=== PATIENT | female | born 1975 | race Caucasian/White ===

== ENCOUNTER 2023-04-05 09:46 | Emergency (ER) | payer BC, SELFPAY ==
[2023-04-05] VITALS (9 sets, daily range): BP systolic 106–134; BP diastolic 68–81; PULSE 56–70; RESP 10–18; TEMP 36.8; O2SAT 95–99; BMI 30.1
--- NOTE | 2023-04-05 10:00 | ED.GENADUL1 ---
HPI - General Adult General Chief complaint: Syncope Stated complaint: syncope Time Seen by Provider: 04/05/23 09:59 Source: patient Mode of arrival: walk-in Limitations: no limitations History of Present Illness HPI narrative: patient is a 47-year-old female who is presenting to the Emergency Room with chief complaint of a syncopal episode today. Patient has a history of 1st degree AV block. Patient is working with Dr. Marcus, cardiology. Patient has never had a syncopal episode secondary to cardiac reasons that she is aware of. Patient was feeling lightheaded and dizzy, some mild nausea last evening. Patient was at work today, she is respiratory therapist at [employer]. patient states for the past week she has not been feeling well, intermittently headache, palpitations and intermittent chest pain. Patient has had ongoing symptoms on and off the last several months. Patient was admitted to [facility] and had a cardiac evaluation. Patient was set up with Dr. Marcus. Patient was initially started on metoprolol 25 mg twice a day, and she was having some side effects metoprolol slightly decrease her to half a tablet twice a day. to have a tablet was was not working, then patient started having symptoms again so she increased her metoprolol back to 25 mg twice a day for the past week which is not helping this time. 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 Currently patient has minimal palpitations, Related Data Home Medications Medication Instructions Recorded Confirmed escitalopram oxalate 20 mg tablet 20 mg PO DAILY 04/05/23 04/05/23 famotidine 20 mg tablet (Acid 20 mg PO DAILY 04/05/23 04/05/23 Controller) metoprolol tartrate 25 mg tablet 25 mg PO Q12H 04/05/23 04/05/23 Previous Rx's Medication Instructions Recorded labetalol 100 mg tablet 50 mg PO BID #20 tabs 04/05/23 Allergies Allergy/AdvReac Type Severity Reaction Status Date / Time No Known Drug Allergies Allergy Verified 04/05/23 09:51 Exam Constitutional Vital Signs - 24 hr 04/05/23 09:51 04/05/23 09:52 04/05/23 09:54 Temperature 98.2 F Pulse Rate 70 69 Pulse Rate [Monitor] 67 Respiratory Rate 18 10 L 18 Blood Pressure 120/78 H Blood Pressure [Right Arm] 120/78 H Pulse Oximetry 96 99 Oxygen Delivery Method Room Air 04/05/23 09:54 04/05/23 10:15 04/05/23 10:30 Temperature Pulse Rate 58 L 67 59 L Pulse Rate [Monitor] Respiratory Rate 18 16 18 Blood Pressure 106/71 120/68 H Blood Pressure [Right Arm] Pulse Oximetry 96 95 Oxygen Delivery Method 04/05/23 11:00 04/05/23 11:30 04/05/23 12:00 Temperature Pulse Rate 58 L 63 56 L Pulse Rate [Monitor] Respiratory Rate 16 11 L 15 Blood Pressure 133/81 H 134/80 H 117/70 Blood Pressure [Right Arm] Pulse Oximetry 99 99 Oxygen Delivery Method Course Vital Signs Vital signs: Vital Signs Temperature 98.2 F 04/05/23 09:51 Pulse Rate 67 04/05/23 09:51 Respiratory Rate 18 04/05/23 09:51 Blood Pressure 120/78 H 04/05/23 09:51 Pulse Oximetry 96 04/05/23 09:51 Oxygen Delivery Method Room Air 04/05/23 09:51 Temperature 98.2 F 04/05/23 09:51 Pulse Rate 56 L 04/05/23 12:00 Respiratory Rate 15 04/05/23 12:00 Blood Pressure 117/70 04/05/23 12:00 Pulse Oximetry 99 04/05/23 12:00 Oxygen Delivery Method Room Air 04/05/23 09:51 Medical Decision Making MDM Narrative Medical decision making narrative: 2 different phone calls were had with Taylor TSE at the [facility] office in [place]. I initially spoke to her when patient had arrived to make her aware of the visit, aware of the workup patient had any TMC, and to see what recommendations can be made at discharge. Patient CTA of the chest shows no acute pathology. patient's troponin, electrolytes, and lab testing showed no acute abnormalities. Patient's EKG showed no acute findings. Taylor TSE at the [facility] office in [place] made recommendations at discharge that patient should stop taking metoprolol, started taking labetalol 50 mg twice a day. Patient will still keep her Saturday appointment next week in the [place] [facility]ology office, but the nurse practitioner trying get her to a neurogenic cardio clinic in he [facility] which may be more beneficial. The cardiology office at [place] will call patient to let her know about what they in time her appointment can be and also if her appointment on Saturday will be cancer or not. Patient feels slightly better after IV fluids. Patient understands recommendation of having somebody from home pick her up from work today. Patient was given a work note for tomorrow if needed. Patient will follow up with specialist next week, patient feels comfortable going home. No questions at discharge. Medical Records Medical records narrative: CTA of the chest show no acute pathology, please see official report Lab Data Lab results reviewed: Yes I reviewed the patient's lab results Labs: Lab Results 04/05/23 04/05/23 04/05/23 Range/Units 10:00 10:14 10:40 WBC 9.4 (4.0-11.0) 10^3/uL RBC 4.15 L (4.20-5.40) 10^6/uL Hgb 12.1 (12.0-16.0) g/dL Hct 36.8 (36.0-48.0) % MCV 88.7 (81.0-99.0) fL MCH 29.2 (26.7-34.0) pg MCHC 32.9 (29.9-35.2) g/dL RDW 13.2 (11.0-15.0) % Plt Count 379 (150-450) 10^3/uL MPV 9.6 (9.5-13.5) fL Neut % (Auto) 60.3 (43.0-75.0) % Lymph % (Auto) 30.2 (20.5-60.0) % [place] % (Auto) 6.7 (1.7-12.0) % Eos % (Auto) 2.1 (0.9-7.0) % Baso % (Auto) 0.5 (0.2-2.0) % Neut # (Auto) 5.6 (1.4-6.5) 10^3/uL Lymph # (Auto) 2.8 (1.2-3.8) 10^3/uL [place] # (Auto) 0.6 (0.3-0.8) 10^3/uL Eos # (Auto) 0.2 (0.0-0.7) 10^3/uL Baso # (Auto) 0.1 (0.0-0.1) 10^3/uL Abs Immat Gran (auto) 0.02 (0.00-0.03) 10^3/uL Imm/Tot Granulo (auto) 0.2 (0.0-0.5) % Sodium 139 (136-145) mmol/L Potassium 3.9 (3.5-5.1) mmol/L Chloride 103 (98-107) mmol/L Carbon Dioxide 26.8 (21.0-32.0) mmol/L Anion Gap 13.1 BUN 19.0 H (7.0-18.0) mg/dL Creatinine 1.02 (0.55-1.02) mg/dL Est GFR ( Amer) >60 (>=60) Est GFR (Non-Af Amer) 58 L (>=60) BUN/Creatinine Ratio 18.6 Glucose 92 (74-106) mg/dL Calcium 8.9 (8.5-10.1) mg/dL Magnesium 2.0 (1.8-2.4) mg/dL Total Bilirubin 0.3 (0.2-1.0) mg/dL AST 17 (15-37) U/L ALT 21 (14-59) U/L Alkaline Phosphatase 61 (46-116) U/L Troponin I High Sens <4.0 L (4.0-51.3) pg/mL NT-Pro-B Natriuret Pep 46.0 (<=450.0) pg/mL Total Protein 7.3 (6.4-8.2) g/dL Albumin 3.6 (3.4-5.0) g/dL Globulin 3.7 g/dL Albumin/Globulin Ratio 1.0 Lipase 182.0 (73.0-393.0) U/L Urine Color Lt. yellow (YELLOW) Urine Clarity Clear (CLEAR) Urine pH 7.5 (5.0-9.0) Ur Specific [place] 1.010 (1.005-1.025) Urine Protein Negative (NEG/TRACE) mg/dL Urine Glucose (UA) Negative (NEGATIVE) mg/dL Urine Ketones Negative (NEGATIVE) mg/dL Urine Occult Blood Negative (NEGATIVE) Urine Nitrite Negative (NEGATIVE) Urine Bilirubin Negative (NEGATIVE) Urine Urobilinogen 0.2 (0.2-1.0) EU/dL Ur Leukocyte Esterase Moderate A (NEGATIVE) Urine RBC (0-2) #/HPF Urine WBC (NONE SEEN) #/HPF Ur Squamous Epith Cells (NONE/RARE) #/LPF Urine Crystals (None Seen) #/HPF Urine Bacteria (NONE SEEN) #/HPF Urine Casts (NONE SEEN) #/LPF Urine Mucus (NONE SEEN) Ur Culture Indicated? Urine HCG, Qual Negative (NEGATIVE) POC Glucose 96 (74-106) mg/dL 04/05/23 Range/Units 10:49 WBC (4.0-11.0) 10^3/uL RBC (4.20-5.40) 10^6/uL Hgb (12.0-16.0) g/dL Hct (36.0-48.0) % MCV (81.0-99.0) fL MCH (26.7-34.0) pg MCHC (29.9-35.2) g/dL RDW (11.0-15.0) % Plt Count (150-450) 10^3/uL MPV (9.5-13.5) fL Neut % (Auto) (43.0-75.0) % Lymph % (Auto) (20.5-60.0) % [place] % (Auto) (1.7-12.0) % Eos % (Auto) (0.9-7.0) % Baso % (Auto) (0.2-2.0) % Neut # (Auto) (1.4-6.5) 10^3/uL Lymph # (Auto) (1.2-3.8) 10^3/uL [place] # (Auto) (0.3-0.8) 10^3/uL Eos # (Auto) (0.0-0.7) 10^3/uL Baso # (Auto) (0.0-0.1) 10^3/uL Abs Immat Gran (auto) (0.00-0.03) 10^3/uL Imm/Tot Granulo (auto) (0.0-0.5) % Sodium (136-145) mmol/L Potassium (3.5-5.1) mmol/L Chloride (98-107) mmol/L Carbon Dioxide (21.0-32.0) mmol/L Anion Gap BUN (7.0-18.0) mg/dL Creatinine (0.55-1.02) mg/dL Est GFR ( Amer) (>=60) Est GFR (Non-Af Amer) (>=60) BUN/Creatinine Ratio Glucose (74-106) mg/dL Calcium (8.5-10.1) mg/dL Magnesium (1.8-2.4) mg/dL Total Bilirubin (0.2-1.0) mg/dL AST (15-37) U/L ALT (14-59) U/L Alkaline Phosphatase (46-116) U/L Troponin I High Sens (4.0-51.3) pg/mL NT-Pro-B Natriuret Pep (<=450.0) pg/mL Total Protein (6.4-8.2) g/dL Albumin (3.4-5.0) g/dL Globulin g/dL Albumin/Globulin Ratio Lipase (73.0-393.0) U/L Urine Color (YELLOW) Urine Clarity (CLEAR) Urine pH (5.0-9.0) Ur Specific [place] (1.005-1.025) Urine Protein (NEG/TRACE) mg/dL Urine Glucose (UA) (NEGATIVE) mg/dL Urine Ketones (NEGATIVE) mg/dL Urine Occult Blood (NEGATIVE) Urine Nitrite (NEGATIVE) Urine Bilirubin (NEGATIVE) Urine Urobilinogen (0.2-1.0) EU/dL Ur Leukocyte Esterase (NEGATIVE) Urine RBC None seen (0-2) #/HPF Urine WBC 10-20 A (NONE SEEN) #/HPF Ur Squamous Epith Cells Moderate A (NONE/RARE) #/LPF Urine Crystals None seen (None Seen) #/HPF Urine Bacteria None seen (NONE SEEN) #/HPF Urine Casts None seen (NONE SEEN) #/LPF Urine Mucus None seen (NONE SEEN) Ur Culture Indicated? Yes Urine HCG, Qual (NEGATIVE) POC Glucose (74-106) mg/dL ECG Data Attestation: I personally reviewed and interpreted this ECG as follows: Interpretation: EKG interpretation. Normal sinus rhythm at 60 beats a minute. Normal axis deviation. No acute ST elevation, no acute ectopy. QTC of 403. DC interval of 284, first-degree AV block, chronic Discharge Plan Discharge Chief Complaint: Syncope Clinical Impression: AV block, 1st degree, Syncope Patient Disposition: Home, Self-Care Time of Disposition Decision: 13:23 Condition: Fair Prescriptions / Home Meds: New labetalol 100 mg tablet 50 mg PO BID Qty: 20 0RF No Action metoprolol tartrate 25 mg tablet 25 mg PO Q12H escitalopram oxalate 20 mg tablet 20 mg PO DAILY famotidine [Acid Controller] 20 mg tablet 20 mg PO DAILY Instructions: Syncope (ED), Heart Block (ED), Sick Sinus Syndrome (ED) Additional Instructions: education on sick sinus syndrome was given 2 for educational purposes only. stop taking metoprolol. You have a new prescription for labetalol 50 mg twice a day. Urine appointment is still scheduled for Saturday, the nurse practitioner from the cardiac clinic at [facility] is trying to save up with an appointment at the neurogenic cardio clinic at [facility]. The cardiology office at [place] will call you with further details on a new appointment in [place] and if your appointment will be canceled on Saturday. Continue to hydrate. Follow up with PCP. It is recommended he have a family member drive you home today, because cautious with driving. Stand Alone Forms: Portal Instructions Referrals: Physician,Non-Staff, MD [Primary Care Provider] - 1 week
[2023-04-05 10:17] LABS: Glucometer 96 mg/dL (74-106)
--- NOTE | 2023-04-05 10:18 | ECG_ITS ---
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
--- NOTE | 2023-04-05 10:19 | CT_ITS ---
[address] [address] Patient Name: SAM ESPINOZA MRN: [id number] date: 1975 Sex: F Assigned Patient Location: ER Current Patient Location: ER Accession/Order Number: [id number] Exam Date: 04/05/2023 10:38 Report Date: 04/05/2023 11:05 At the request of: EMMANUEL GARDNER Procedure: CT angio chest EXAMINATION: CT angio chest HISTORY: rule out PE , palpitations, syncopal episode, weakness COMPARISON: CTA chest 03/25/2020 TECHNIQUE: Multi-planar CT images were created with IV contrast. Axial, Coronal, and Sagittal images. Dose reduction techniques were achieved by using automated exposure control and/or adjustment of mA and/or kV according to patient size and/or use of iterative reconstruction technique. 3-D reconstruction was performed on a separate workstation. FINDINGS: VASCULATURE: No pulmonary embolism or abnormal opacity. LUNGS: No visible pulmonary disease. PLEURA: No mass, effusion, or pneumothorax. ADRIANA: No mass or adenopathy. MEDIASTINUM: No mass or adenopathy. CARDIAC: No enlargement, pericardial effusion, or pericardial thickening. AORTA: No aneurysm or dissection. CHEST WALL: No mass or axillary adenopathy. BONES: No bone lesion or fracture. LIMITED ABDOMEN: No suspicious findings. Limited images of the upper abdomen. OTHER: Negative. IMPRESSION: 1. No pulmonary embolism. 2. No pulmonary infiltrates or acute/suspicious findings to account for patient's symptoms. Electronically authenticated by: SUSY KING Date: 04/05/2023 11:05
[2023-04-05] MEDS: 0.9 % SODIUM CHLORIDE 1,000 ML 1000 ML IV (10:29)
[2023-04-05 10:36] LABS: Basophils Absolute Auto 0.1 10^3/uL (0.0-0.1); Basophils Percent Auto 0.5 % (0.2-2.0); Eosinophils Absolute Auto 0.2 10^3/uL (0.0-0.7); Eosinophils Percent Auto 2.1 % (0.9-7.0); Hematocrit 36.8 % (36.0-48.0); Hemoglobin 12.1 g/dL (12.0-16.0); Immature Granulocytes Abs Auto 0.02 10^3/uL (0.00-0.03); Immature Granulocytes Pct Auto 0.2 % (0.0-0.5); Lymphocytes Absolute Auto 2.8 10^3/uL (1.2-3.8); Lymphocytes Percent Auto 30.2 % (20.5-60.0); Mean Corpuscular HGB Conc 32.9 g/dL (29.9-35.2); Mean Corpuscular Hemoglobin 29.2 pg (26.7-34.0); Mean Corpuscular Volume 88.7 fL (81.0-99.0); Mean Platelet Volume 9.6 fL (9.5-13.5); Monocytes Absolute Auto 0.6 10^3/uL (0.3-0.8); Monocytes Percent Auto 6.7 % (1.7-12.0); Neutrophils Absolute Auto 5.6 10^3/uL (1.4-6.5); Neutrophils Percent Auto 60.3 % (43.0-75.0); Platelet Count 379 10^3/uL (150-450); Red Blood Count 4.15 10^6/uL (4.20-5.40); Red Cell Distribution Width 13.2 % (11.0-15.0); White Blood Count 9.4 10^3/uL (4.0-11.0)
[2023-04-05] MEDS: ASPIRIN 81 MG TAB.CHEW 162 MG PO (10:36)
[2023-04-05 10:48] LABS: Bilirubin Urine NEGATIVE (NEGATIVE); Blood Urine NEGATIVE (NEGATIVE); Clarity Urine CLEAR (CLEAR); Color Urine LT. YELLOW (YELLOW); Glucose Urine UA NEGATIVE (NEGATIVE); Ketones Urine NEGATIVE (NEGATIVE); Leukocyte Esterase Urine MODERATE (NEGATIVE); Nitrite Urine NEGATIVE (NEGATIVE); Protein Urine NEGATIVE (NEG/TRACE); Urobilinogen Urine 0.2 EU/dL (0.2-1.0); pH Urine 7.5 (5.0-9.0)
[2023-04-05 10:49] LABS: Urine Microscopic Indicated YES
[2023-04-05 10:51] LABS: HCG Qualitative Urine* NEGATIVE (NEGATIVE)
[2023-04-05 10:52] LABS: Alanine Aminotransferase 21 U/L (14-59); Albumin Level 3.6 g/dL (3.4-5.0); Alkaline Phosphatase 61 U/L (46-116); Anion Gap 13.1; Aspartate Amino Transferase 17 U/L (15-37); BUN Creatinine Ratio 18.6; Bilirubin Total 0.3 mg/dL (0.2-1.0); Calcium 8.9 mg/dL (8.5-10.1); Carbon Dioxide 26.8 mmol/L (21.0-32.0); Chloride 103 mmol/L (98-107); Estimated GFR (African America >60 (>=60); Estimated GFR (Non-African Ame 58 (>=60); Globulin 3.7 g/dL; Glucose 92 mg/dL (74-106); Potassium 3.9 mmol/L (3.5-5.1); Sodium 139 mmol/L (136-145); Total Protein 7.3 g/dL (6.4-8.2)
[2023-04-05 10:58] LABS: Troponin I High Sensitivity <4.0 pg/mL (4.0-51.3)
[2023-04-05 11:00] LABS: RBC Urine NONE SEEN #/HPF (0-2)
[2023-04-05 11:01] LABS: Bacteria Urine NONE SEEN #/HPF (NONE SEEN); Cast Seen? NONE SEEN #/LPF (NONE SEEN); Crystals Seen? None Seen #/HPF (None Seen); Mucus Urine NONE SEEN (NONE SEEN); Squamous Epithelial Cell Urine MODERATE #/LPF (NONE/RARE); Urine Culture Indicated YES
--- NOTE | 2023-04-05 12:56 | CA_ITS ---
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: : 1975 Requested By: [id number] Order Number: [id number] Reading MD: FORD ELLIOTT Interpretive Statements Predominant rhythm is sinus with with first degree AV block and average rate of 71 bpm TAchycardia - max rate of 135 bpm - longest episode of 6min 19sec w/ rate of 117-128bpm Bradycardia - min rate of 24 bpm, associated with block QRS due to AV block - longest episode of 4hrs 51min 30sec w/ rate of 48bpm Ventricular ectopy - 8 total (< 1%) - 7 PVC - 1 couplet Blocks - 5 episodes of second degree AV block, type I Patient triggered events: 40 - associated with rate of 108, 110, 117, 112, 114 and the remainder NSR - associated with chest pain, palpitations, SOB Impression: Predominant rhythm is sinus with average rateof 71 bpm - first degree AV block Fastest rate of 135 bpm and slowest 24 bpm (associated w/ dropped QRS) 7 PVC, 1 couplet 5 episodes of second degree AV block type I Electronically Signed On 05-26-2023 18:47:36 EDT by FORD ELLIOTT
--- NOTE | 2023-04-05 13:06 | PC.NURSE ---
RT at bedside placing haltor monitor at this time
== END 2023-04-05 13:39 | disposition home or self-care (01) ==
PROVIDERS: Emergency Provider Emergency Medicine
DX: R55 Syncope and collapse (principal); I44.0 Atrioventricular block, first degree; Z79.899 Other long term (current) drug therapy
CPT/HCPCS: 36415; 71275; 80053; 81001; 81003; 81015; 82948; 83690; 83735; 83880; 84484; 84703; 85025; 87086; 93005; 93246; 99285; Q9967

== ENCOUNTER 2023-06-03 22:15 | Outpatient (REF) | payer BC, SELFPAY ==
[2023-06-07 15:09] LABS: Age Gdln ACOG Testing Note (.); HPV Aptima Negative (Negative); IGP, Aptima HPV, rfx 16/18,45 Note (.)
== END 2023-06-03 22:16 | disposition home or self-care (01) ==
LOC: LAB 22:15
PROVIDERS: Visit Provider Physician Assistant
DX: Z01.419 Encounter for gynecological examination (general) (routine) without abnormal findings (principal)
CPT/HCPCS: 87624; G0145

== ENCOUNTER 2023-06-10 06:50 | Outpatient (OUT) | payer BC, SELFPAY ==
[2023-06-10 07:43] LABS: Basophils Percent Auto 0.4 % (0.2-2.0); Eosinophils Absolute Auto 0.3 10^3/uL (0.0-0.7); Hematocrit 38.6 % (36.0-48.0); Hemoglobin 12.6 g/dL (12.0-16.0); Immature Granulocytes Abs Auto 0.02 10^3/uL (0.00-0.03); Immature Granulocytes Pct Auto 0.2 % (0.0-0.5); Lymphocytes Absolute Auto 2.8 10^3/uL (1.2-3.8); Lymphocytes Percent Auto 29.2 % (20.5-60.0); Mean Corpuscular HGB Conc 32.6 g/dL (29.9-35.2); Mean Corpuscular Hemoglobin 28.8 pg (26.7-34.0); Mean Corpuscular Volume 88.3 fL (81.0-99.0); Mean Platelet Volume 9.4 fL (9.5-13.5); Monocytes Absolute Auto 0.8 10^3/uL (0.3-0.8); Neutrophils Absolute Auto 5.7 10^3/uL (1.4-6.5); Neutrophils Percent Auto 59.2 % (43.0-75.0); Platelet Count 380 10^3/uL (150-450); Red Blood Count 4.37 10^6/uL (4.20-5.40); White Blood Count 9.6 10^3/uL (4.0-11.0)
[2023-06-10 07:58] LABS: Estimated Average Glucose 108 mg/dL; Glycohemoglobin A1C 5.4 % (4.5-6.2)
[2023-06-10 09:08] LABS: Alanine Aminotransferase 21 U/L (14-59); Albumin Globulin Ratio 0.9; Albumin Level 3.8 g/dL (3.4-5.0); Alkaline Phosphatase 52 U/L (46-116); Anion Gap 11.5; Aspartate Amino Transferase 17 U/L (15-37); BUN Creatinine Ratio 16.3; Bilirubin Total 0.4 mg/dL (0.2-1.0); Carbon Dioxide 27.3 mmol/L (21.0-32.0); Chloride 104 mmol/L (98-107); Estimated GFR (African America >60 (>=60); Estimated GFR (Non-African Ame >60 (>=60); Glucose 89 mg/dL (74-106); Potassium 3.8 mmol/L (3.5-5.1); Sodium 139 mmol/L (136-145); Thyroid Stimulating Hormone 2.636 uIU/mL (0.358-3.740); Total Protein 7.8 g/dL (6.4-8.2)
== END 2023-06-10 06:51 | disposition home or self-care (01) ==
LOC: LAB 06:51
PROVIDERS: Visit Provider Physician Assistant
DX: Z01.419 Encounter for gynecological examination (general) (routine) without abnormal findings (principal)
CPT/HCPCS: 36415; 80053; 83036; 84443; 85025

== ENCOUNTER 2023-06-11 11:32 | Outpatient (OUT) | payer BC, SELFPAY ==
--- NOTE | 2023-06-11 11:36 | MM_ITS ---
Patient: SAM ESPINOZA Exam Date: 06/11/2023 : 1975 Gender:F Ordering : FLACO Acevedo . Admission #: [id number] Family : Non-Staff Physician Order #: [id number] CLICK HERE TO VIEW EXAM RADIOLOGY REPORT PROCEDURE: MM TOMOSYNTHESIS SCREENING BI COMPARISON: MG MAMM [facility] DIAG W CAD, 12/07/2020. MG MAMM SCREEN 3D [facility] CAD, 06/07/2022. INDICATIONS: Screening mammogram Z12.31 Calculator Name NCI Breast Cancer Risk Assessment Tool 5 Year Breast Cancer Risk 1.60% Lifetime Breast Cancer Risk 16.10% Personal Breast Cancer No Personal Ovarian Cancer No Treatments None Family Cancers Mother with breast cancer at age 64; Grandmother-maternal with breast cancer at age ~70; Aunt-maternal with breast cancer at age ~60; Aunt-maternal with breast cancer at age ~60; Grandfather-maternal with prostate cancer at age ~65; Mother with leukemia cancer at age 64. LOCATION: [facility] BREAST COMPOSITION: Extremely dense, which lowers the sensitivity of mammography. FINDINGS: DIAGNOSTIC CATEGORY 2--BENIGN FINDING. NO CHANGE FROM COMPARISON. Scattered benign-appearing calcifications are present. Scattered benign-appearing lymph nodes are present. RIGHT BREAST: No significant suspicious finding. LEFT BREAST: No significant suspicious finding. Loop recorder left axilla RECOMMENDATIONS: ROUTINE MAMMOGRAM AND CLINICAL EVALUATION IN 12 MONTHS. PLEASE NOTE: A NORMAL MAMMOGRAM DOES NOT EXCLUDE THE POSSIBILITY OF BREAST CANCER. A CLINICALLY SUSPICIOUS PALPABLE LUMP SHOULD BE BIOPSIED. Dictated by: Jb Lane MD on 06/12/2023 at 06:47 Approved by: Jb [address] MD on 06/12/2023 at 06:50
== END 2023-06-11 11:33 | disposition home or self-care (01) ==
LOC: MAMMO 11:32
PROVIDERS: Visit Provider Physician Assistant
DX: Z12.31 Encounter for screening mammogram for malignant neoplasm of breast (principal); Z80.3 Family history of malignant neoplasm of breast; Z80.42 Family history of malignant neoplasm of prostate; Z80.6 Family history of leukemia
CPT/HCPCS: 77063; 77067

== ENCOUNTER 2023-07-03 15:14 | Emergency (ER) | payer BC, SELFPAY ==
[2023-07-03] VITALS (30 sets, daily range): BP systolic 102–127; BP diastolic 62–78; PULSE 68–118; RESP 14–27; O2SAT 92–100; BMI 30.1
--- NOTE | 2023-07-03 15:37 | ED_ITS ---
HPI - Chest Pain General Chief Complaint: Chest Pain Stated Complaint: heart rate Time Seen by Provider: 07/03/23 15:37 Source: patient Mode of arrival: Wheelchair Limitations: no limitations History of Present Illness HPI narrative: Patient presents to emergency department complaining of palpitations. Patient states she was driving from. As per to [place] and on her way to work developed palpitations. She looked at her to watch and it showed a heart rate in the 140s. Patient arrived to the hospital and it was still 140. She was feeling dizzy and lightheaded so she came into the emergency department for evaluation. Patient has not been sick with anything such as fever, chills, cough, shortness of breath. She states since December she has been having weakness, palpitations, and has just not felt right. Since then she had a syncopal episode and was diagnosed with the 1st degree AV block. The patient has seen Dr. Guzman in and she had a loop recorder placed. Next appointment with Dr. Guzman is July. Related Data Home Medications Medication Instructions Recorded Confirmed escitalopram oxalate 20 mg tablet 20 mg PO DAILY 04/05/23 04/05/23 famotidine 20 mg tablet (Acid 20 mg PO DAILY 04/05/23 04/05/23 Controller) metoprolol tartrate 25 mg tablet 25 mg PO Q12H 04/05/23 04/05/23 Previous Rx's Medication Instructions Recorded labetalol 100 mg tablet 50 mg PO BID #20 tabs 04/05/23 tizanidine 4 mg capsule 4 mg PO ONCE PRN at bedtime #20 07/03/23 caps Allergies Allergy/AdvReac Type Severity Reaction Status Date / Time No Known Drug Allergies Allergy Verified 04/05/23 09:51 Review of Systems ROS Status of ROS 10 or more systems reviewed and unremarkable except as noted in history and below Exam Narrative Exam Narrative: Nurses notes and vital signs reviewed and patient is not hypoxic. General: Nontoxic, Well-appearing and in no apparent distress. Skin: Warm, dry, no pallor noted. No Rash Head: Normocephalic, atraumatic. Neck: Supple, non-tender. Eye: Pupils are equal, round and EOMI. No scleral icterus. Ears, Nose, Mouth, and Throat: TM clear, no posterior oropharynx erythema or nasal mucosal hypertrophy, uvula is mid-line Oral mucosa is moist Cardiovascular: sinus tachycardia without murmur, gallop or rub. Respiratory: No accessory muscle use or respiratory distress. Lungs are clear to auscultation, no wheezing, rales or rhonchi Chest Wall: no tenderness Back: No midline thoracic or lumbar vertebral tenderness. No CVA tenderness Musculoskeletal: normal ROM, no calf or popliteal tenderness, no lower extremity edema/swelling GI: Abdomen is soft, non-distended. Normal bowel sounds. No masses appreciated. No tenderness to palpation. No rebound, guarding, or rigidity noted. Neurological: A&O x4. No cranial nerve dysfunction observed. No truncal ataxia. Moves all extremities. Sensation intact. Psychiatric: Cooperative and interactive. Anxious Constitutional Vital Signs, click to edit/add: Last Vital Signs Pulse 71 07/03/23 19:40 Resp 20 07/03/23 19:40 BP 107/67 07/03/23 19:30 Pulse Ox 96 07/03/23 19:40 O2 Del Method Room Air 07/03/23 15:24 Course Vital Signs Vital signs: Vital Signs Pulse Rate 118 H 07/03/23 15:24 Respiratory Rate 20 07/03/23 15:24 Blood Pressure 118/73 07/03/23 15:24 Pulse Oximetry 99 07/03/23 15:24 Oxygen Delivery Method Room Air 07/03/23 15:24 Pulse Rate 71 07/03/23 19:40 Respiratory Rate 20 07/03/23 19:40 Blood Pressure 107/67 07/03/23 19:30 Pulse Oximetry 96 07/03/23 19:40 Oxygen Delivery Method Room Air 07/03/23 15:24 MDM - Chest Pain MDM Narrative Medical decision making narrative: EKG shows sinus tachycardia without any acute ischemic changes. The patient was given 1 L of normal saline. Lab studies show dehydration, hypokalemia. Patient was given 50 mEq of potassium bicarbonate. And patient remained anxious. She has also complained of being so stressed about all of her current health issues sleeping at night. The patient was given 1 mg of Ativan which helped with her anxiety. Patient has a history of alcohol dependency she has been compliant with her recovery plan in the last 3 years. Discussed with the patient the risks of Ativan for sleep aid. We decided together to try tizanidine which will help her relax and sleep some, melatonin, versus a benzodiazepine. We decided not use benzodiazepines. Patient was given a prescription for tizanidine. She will use melatonin also as a sleep aid. The patient was discussed with Dr. Guzman who advised the office will set up an appointment for the patient in the next week to download the recorder information. At this time the patient is without objective evidence of an acute process requiring hospitalization or inpatient management. The patient has remained hemodynamically stable. No additional indication for emergent studies at this time. I answered all questions. Discussed discharge instructions including standard anticipatory guidance and what should prompt a return to the emergency department, including if they get worse are not getting better or develops any new or concerning symptoms. I've given them specific time frame in which to follow-up, and who to follow-up with. The patient demonstrates understanding. Patient is nontoxic and stable for discharge with outpatient follow-up. This note was created with the assistance of a speech recognition program. Although the intention is to generate documents that actually reflects the content of the visit, no guarantees can be provided that every mistake has been identified and corrected by editing. Lab Data Attestation: I reviewed the patient's lab results. Labs: Lab Results 07/03/23 07/03/23 07/03/23 Range/Units 15:30 18:02 18:50 WBC 13.5 H (4.0-11.0) 10^3/uL RBC 4.47 (4.20-5.40) 10^6/uL Hgb 13.2 (12.0-16.0) g/dL Hct 38.8 (36.0-48.0) % MCV 86.8 (81.0-99.0) fL MCH 29.5 (26.7-34.0) pg MCHC 34.0 (29.9-35.2) g/dL RDW 12.5 (11.0-15.0) % Plt Count 395 (150-450) 10^3/uL MPV 9.1 L (9.5-13.5) fL Neut % (Auto) 70.4 (43.0-75.0) % Lymph % (Auto) 23.0 (20.5-60.0) % [place] % (Auto) 4.9 (1.7-12.0) % Eos % (Auto) 1.1 (0.9-7.0) % Baso % (Auto) 0.3 (0.2-2.0) % Neut # (Auto) 9.5 H (1.4-6.5) 10^3/uL Lymph # (Auto) 3.1 (1.2-3.8) 10^3/uL [place] # (Auto) 0.7 (0.3-0.8) 10^3/uL Eos # (Auto) 0.2 (0.0-0.7) 10^3/uL Baso # (Auto) 0.0 (0.0-0.1) 10^3/uL Abs Immat Gran (auto) 0.04 H (0.00-0.03) 10^3/uL Imm/Tot Granulo (auto) 0.3 (0.0-0.5) % PT 10.2 (9.0-11.6) sec INR 0.96 APTT 25.1 (22.3-36.2) sec Sodium 140 (136-145) mmol/L Potassium 3.2 L (3.5-5.1) mmol/L Chloride 105 (98-107) mmol/L Carbon Dioxide 24.6 (21.0-32.0) mmol/L Anion Gap 13.6 BUN 15.0 (7.0-18.0) mg/dL Creatinine 1.09 H (0.55-1.02) mg/dL Est GFR ( Amer) >60 (>=60) Est GFR (Non-Af Amer) 54 L (>=60) BUN/Creatinine Ratio 13.8 Glucose 170 H (74-106) mg/dL Calcium 8.7 (8.5-10.1) mg/dL Magnesium 2.0 (1.8-2.4) mg/dL Total Bilirubin 0.3 (0.2-1.0) mg/dL AST 18 (15-37) U/L ALT 27 (14-59) U/L Alkaline Phosphatase 66 (46-116) U/L Troponin I High Sens <4.0 L <4.0 L (4.0-51.3) pg/mL NT-Pro-B Natriuret Pep 13.0 (<=450.0) pg/mL Total Protein 7.6 (6.4-8.2) g/dL Albumin 3.8 (3.4-5.0) g/dL Globulin 3.8 g/dL Albumin/Globulin Ratio 1.0 SARS-CoV-2 (PCR) Negative (NEGATIVE) SARS-CoV-2 RNA (MINNIE) Not detected (NOT DETECTE) ECG Data Attestation: I personally reviewed and interpreted this ECG as follows: Interpretation: Patient had intermittent episodes of a sinus arrhythmia, heart rate remained no greater than 120bpm. Heart Score History: Slightly/Non-Suspicious ECG: NS Repolarization Age: >45-<65 years Risk Factors: No Risk Factors Troponin: <Normal Limit Total Heart Score Recommendations & Risks:: 2 Discharge Plan Discharge Chief Complaint: Chest Pain Clinical Impression: Palpitations, Insomnia Patient Disposition: Home, Self-Care Time of Disposition Decision: 19:25 Condition: Good Mode of Transportation: Private Vehicle Prescriptions / Home Meds: New tizanidine 4 mg capsule 4 mg PO ONCE PRN (Reason: at bedtime) Qty: 20 0RF No Action metoprolol tartrate 25 mg tablet 25 mg PO Q12H escitalopram oxalate 20 mg tablet 20 mg PO DAILY famotidine [Acid Controller] 20 mg tablet 20 mg PO DAILY labetalol 100 mg tablet 50 mg PO BID Qty: 20 0RF Instructions: Heart Palpitations (ED), Insomnia (ED) Additional Instructions: Follow up with dr guzman as scheduled. follow up with dr Benton Obshiv [phone] Stand Alone Forms: Portal Instructions Discharge Date/Time: 07/03/23 19:54
--- NOTE | 2023-07-03 15:40 | XR_ITS ---
The [address] [address] Patient Name: SAM ESPINOZA MRN: [id number] date: 1975 Sex: F Assigned Patient Location: ER Current Patient Location: ER Accession/Order Number: [id number] Exam Date: 07/03/2023 16:00 Report Date: 07/03/2023 16:13 At the request of: BERTHA MEDELLIN Procedure: XR chest 1V EXAMINATION: XR chest 1V HISTORY: Chest pain COMPARISON: None. TECHNIQUE: Portable chest FINDINGS: The lung parenchyma is free of consolidation or infiltrate. No pneumothorax or pleural effusion. The cardiac, mediastinal and hilar contours are normal. The visualized osseous structures exhibit no gross abnormality. XR/XR chest 1V IMPRESSION: No acute cardiopulmonary abnormality. Electronically authenticated by: ZACK DODD Date: 07/03/2023 16:13
--- NOTE | 2023-07-03 15:40 | ECG_ITS ---
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
[2023-07-03 15:53] LABS: Basophils Percent Auto 0.3 % (0.2-2.0); Eosinophils Absolute Auto 0.2 10^3/uL (0.0-0.7); Eosinophils Percent Auto 1.1 % (0.9-7.0); Hematocrit 38.8 % (36.0-48.0); Hemoglobin 13.2 g/dL (12.0-16.0); Immature Granulocytes Abs Auto 0.04 10^3/uL (0.00-0.03); Immature Granulocytes Pct Auto 0.3 % (0.0-0.5); Lymphocytes Absolute Auto 3.1 10^3/uL (1.2-3.8); Mean Corpuscular Hemoglobin 29.5 pg (26.7-34.0); Mean Corpuscular Volume 86.8 fL (81.0-99.0); Mean Platelet Volume 9.1 fL (9.5-13.5); Monocytes Absolute Auto 0.7 10^3/uL (0.3-0.8); Monocytes Percent Auto 4.9 % (1.7-12.0); Neutrophils Absolute Auto 9.5 10^3/uL (1.4-6.5); Neutrophils Percent Auto 70.4 % (43.0-75.0); Platelet Count 395 10^3/uL (150-450); Red Blood Count 4.47 10^6/uL (4.20-5.40); Red Cell Distribution Width 12.5 % (11.0-15.0); White Blood Count 13.5 10^3/uL (4.0-11.0)
[2023-07-03 16:04] LABS: INR 0.96; Partial Thromboplastin Time 25.1 sec (22.3-36.2); Prothrombin Time 10.2 sec (9.0-11.6)
[2023-07-03 16:10] LABS: Alanine Aminotransferase 27 U/L (14-59); Albumin Level 3.8 g/dL (3.4-5.0); Alkaline Phosphatase 66 U/L (46-116); Anion Gap 13.6; Aspartate Amino Transferase 18 U/L (15-37); BUN Creatinine Ratio 13.8; Bilirubin Total 0.3 mg/dL (0.2-1.0); Calcium 8.7 mg/dL (8.5-10.1); Carbon Dioxide 24.6 mmol/L (21.0-32.0); Chloride 105 mmol/L (98-107); Estimated GFR (African America >60 (>=60); Estimated GFR (Non-African Ame 54 (>=60); Globulin 3.8 g/dL; Glucose 170 mg/dL (74-106); Potassium 3.2 mmol/L (3.5-5.1); Sodium 140 mmol/L (136-145); Total Protein 7.6 g/dL (6.4-8.2); Troponin I High Sensitivity <4.0 pg/mL (4.0-51.3)
[2023-07-03] MEDS: POTASSIUM BICARBONATE/CIT 25 MEQ TABLET EFF 50 MEQ PO (16:50)
[2023-07-03] MEDS: 0.9 % SODIUM CHLORIDE 1,000 ML 1000 ML IV (16:51)
--- NOTE | 2023-07-03 17:10 | ECG_ITS ---
The 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
[2023-07-03] MEDS: LORAZEPAM 2 MG/ML 1 ML VIAL 1 MG IV (17:55)
[2023-07-03 18:35] LABS: Troponin I High Sensitivity <4.0 pg/mL (4.0-51.3)
--- NOTE | 2023-07-03 19:00 | ECG_ITS ---
The [facility] Test Date: 2023-07-03 Pat Name: SAM ESPINOZA Department: Room: - Gender: Female [employer] Operator: : 1975 Requested By: Order Number: [id number] Reading MD: FORD ELLIOTT Measurements Intervals [place] Rate: 103 P: 90 MO: 160 QRS: 27 QRSD: 66 T: 57 QT: 354 QTc: 414 Interpretive Statements 1102 Sinus arrhythmia 1120 Sinus tachycardia 8102 Low QRS voltage in chest leads 9140 abnormal rhythm ECG Compared to ECG 07/03/2023 17:10:20 Sinus rhythm no longer present Electronically Signed On 07-04-2023 7:07:43 EDT by FORD ELLIOTT
[2023-07-03 21:18] LABS: SARS-CoV-2 Ag NEGATIVE (NEGATIVE)
[2023-07-04 16:09] LABS: SARS-CoV-2 NAA NOT DETECTED (NOT DETECTE)
== END 2023-07-03 19:54 | disposition home or self-care (01) ==
PROVIDERS: Emergency Provider Emergency Medicine
DX: R00.2 Palpitations (principal); G47.00 Insomnia, unspecified; Z20.822 Contact with and (suspected) exposure to COVID-19; Z79.899 Other long term (current) drug therapy
CPT/HCPCS: 36415; 71045; 80053; 83735; 83880; 84484; 85025; 85610; 85730; 87635; 87811; 93005; 96361; 96374; 99285; U0003

== ENCOUNTER 2023-09-30 08:39 | Outpatient (OUT) | payer BC, SELFPAY ==
--- NOTE | 2023-09-30 08:41 | XR_ITS ---
The [place] [id number] Patient Name: SAM ESPINOZA MRN: [id number] date: 1975 Sex: F Assigned Patient Location: [facility] Current Patient Location: [facility] Accession/Order Number: [id number] Exam Date: 09/30/2023 08:45 Report Date: 09/30/2023 08:59 At the request of: GREER OHARA Procedure: XR chest 2V EXAMINATION: XR chest 2V, 09/30/2023 8:45 AM EST HISTORY: Acute Cough R05.1 COMPARISON: 07/03/2023 TECHNIQUE: AP portable view of the chest performed. FINDINGS: Medical devices: Cardiac pulse generator overlies the left chest wall with right atrial and ventricular leads. Cardiomediastinal silhouette is within normal limits. The lungs are clear. No large pleural effusion, or pneumothorax. Left humeral head rotator cuff anchors are noted. XR/XR chest 2V IMPRESSION: 1. No acute cardiopulmonary abnormality. Electronically authenticated by: DENISE COLVIN Date: 09/30/2023 08:59
== END 2023-09-30 08:40 | disposition home or self-care (01) ==
LOC: RAD 08:39
PROVIDERS: Visit Provider Internal Medicine
DX: R05.1 Acute cough (principal)
CPT/HCPCS: 71046